=== PATIENT | female | born 1965 | race African-American/Black ===

== ENCOUNTER 2024-07-03 13:11 | Emergency (ER) | payer OTHER ==
[2024-07-03] MEDS ORDERED: Lidocaine 1% w/Epinephrine 1:100K 20 ML VIAL ONE (14:17)
[2024-07-03] MEDS ORDERED: Sulfameth/Trimethoprim DS 800-160mg TAB ONE (14:17)
== END 2024-07-03 14:50 | disposition home or self-care (01) ==
LOC: NAV ERS 13:11
DX: L02.412 Cutaneous abscess of left axilla (principal); L73.2 Hidradenitis suppurativa; E11.9 Type 2 diabetes mellitus without complications; I10 Essential (primary) hypertension; F17.210 Nicotine dependence, cigarettes, uncomplicated; Z79.84 Long term (current) use of oral hypoglycemic drugs; Z79.899 Other long term (current) drug therapy
CPT/HCPCS: 10060